=== PATIENT | male | born 1945 | race Caucasian/White ===

== ENCOUNTER 2016-07-19 23:52 | Emergency (ER) | payer MEDICARE, OTHER ==
[~2016-07-19] VITALS: Ht 188 cm; Wt 118.2 kg
[~2016-07-19 23:52] MED LIST: ALPR0.25 PO; B COTAB3 PO; FLUO20TA20 PO; LISI10TA PO; LOVA20TA PO; POTA1080 PO; PROS5TAB2 PO; PROT40TA PO; VITA5000 PO; ZOLP10TA3 PO; ZOVI800T13 PO
[2016-07-20 00:11] VITALS: BP 105/75; PULSE 70; RESP 16; TEMP 97.3; O2SAT 95
[2016-07-20 00:20] VITALS: BP 110/74; PULSE 74; RESP 18; TEMP 97.3; O2SAT 96
--- NOTE | 2016-07-20 01:08 | PD ---
HPI Chief Complaint: Fall Time Seen by Provider: 00:58 Travel History International Travel<30 days: No Contact w/Intl Traveler<30days: No Traveled to known affect area: No History of Present Illness HPI The patient is a 71-year-old male who fell backwards at about 10:00 tonight, this was a non-syncopal spell fall. His only complaint is on the lateral aspect of the patella. He does not think he hit his patella. He denies any joint line tenderness. He denies any locking or giving away. He has never had surgery to that knee. PFSH Past Medical History Atrial Fibrillation: Yes Anxiety: Yes Cancer: No Cardiovascular Problems: Yes (IRREGULAR HEART RATE -HX) Diabetes: Yes (DIET CONTROLLED) Endocrine: No Gastrointestinal Disorders: Yes (GERD; HX GI BLEED) GERD: Yes Genitourinary: Yes (BPH) Hepatitis: No Hiatal Hernia: Yes Hypertension: Yes Immune Disorder: No Insomnia: Yes Musculoskeletal: Yes (ARTHRITIS) Neurologic: No Psychiatric: Yes (ANXIETY) Reproductive: No Respiratory: Yes (SLEEP APNEA) Immunizations Current: Yes Sleep Apnea: Yes Past Surgical History Abdominal Surgery: Yes (88' UMBILICAL HERNIA REPAIR) Body Medical Devices: NONE Cholecystectomy: Yes (NOVEMBER 2012) Pacemaker: No Other Surgery: Yes Social History Alcohol Use: Yes (ONCE MONTHLY) Tobacco Use: No Substance Use: No Allergies-Medications (Allergen,Severity, Reaction): Coded Allergies: No Known Allergies (Verified , 07/20/16) Reported Meds & Prescriptions Reported Meds & Active Scripts Active Reported Zolpidem (Zolpidem Tartrate) 10 Mg Tab 10 Mg PO HS PRN Potassium Citrate ER 15 Meq Tab 10 Meq PO DAILY Pantoprazole (Pantoprazole Sodium) 40 Mg Tab 40 Mg PO DAILY Lovastatin 20 Mg Tab 20 Mg PO DAILY Lisinopril-Hctz 10-12.5 Mg Tab 1 Tab PO DAILY Fluoxetine (Fluoxetine HCl) 20 Mg Cap 20 Mg PO DAILY Finasteride 5 Mg Tab 5 Mg PO DAILY Do not crush. Vitamin D-3 (Cholecalciferol) 1,000 Unit Tab 5,000 Units PO DAILY B-Complex (Vitamins-Lipotropics) 1 Tab 1 Tab PO DAILY Alprazolam 0.25 Mg Tab 0.25 Mg PO Q8H PRN Review of Systems Except as stated in HPI: all other systems reviewed are Neg Physical Exam Narrative GENERAL: Well-nourished, well-developed patient in slight apparent distress with his right knee discomfort. His vital signs are normal. SKIN: Warm and dry. HEAD: Normocephalic. EYES: No scleral icterus. No injection or drainage. NECK: Supple, trachea midline. No JVD or lymphadenopathy. CARDIOVASCULAR: Regular rate and rhythm without murmurs, gallops, or rubs. RESPIRATORY: Breath sounds equal bilaterally. No accessory muscle use. GASTROINTESTINAL: Abdomen soft, non-tender, nondistended. MUSCULOSKELETAL: No cyanosis, or edema. Patellar crunch is normal. Collaterals , drawer, Renato all show intact ligaments. BACK: Nontender without obvious deformity. No CVA tenderness. Data Data Last Documented VS Vital Signs Date Time Temp Pulse Resp B/P Pulse Ox O2 Delivery O2 Flow Rate FiO2 07/20/16 00:20 97.3 74 18 110/74 96 Orders Knee, Complete (4vws) (07/20/16 01:04) [facility] Medical Decision Making Medical Screen Exam Complete: Yes Emergency Medical Condition: Yes Medical Record Reviewed: Yes Interpretation(s) X-rays show severe osteoarthritis but no fracture. Differential Diagnosis Fracture knee, torn meniscus, osteoarthritis, contusion knee Narrative Course The patient has osteoarthritis of his right knee. He should take over-the- counter Motrin and follow-up with his primary care physician. Diagnosis Primary Impression: Osteoarthritis of right knee Additional Instructions: As we discussed, take Motrin or Advil regularly and allowing her need to calm down. This may take several weeks. Follow-up with your primary care physician. Med/Other Pt SpecificInfo: No Change to Meds Disposition: 01 DISCHARGE HOME Condition: Stable David Hopkins MD Jul 20, 2016 01:08
[2016-07-20] MEDS ORDERED: LOVA20TA PO (01:14)
[2016-07-20] MEDS ORDERED: LISI10TA PO (01:14)
[2016-07-20] MEDS ORDERED: POTA4.25 PO (01:14)
[2016-07-20] MEDS ORDERED: VITA10003 PO (01:14)
[2016-07-20] MEDS ORDERED: B-COTAB27 PO (01:14)
[2016-07-20] MEDS ORDERED: PANT40TA3 PO (01:14)
[2016-07-20] MEDS ORDERED: ALPR0.25 PO (01:14)
[2016-07-20] MEDS ORDERED: FINA5TAB2 PO (01:14)
[2016-07-20] MEDS ORDERED: FLUO20CA4 PO (01:14)
[2016-07-20] MEDS ORDERED: ZOLP10TA3 PO (01:14)
--- NOTE | 2016-07-20 01:27 | RADHPO ---
EXAM DATE/TIME: 07/20/2016 01:08 [facility] COMPARISON: No previous studies available for comparison. INDICATIONS : Right knee pain after patient fell down stairs 4 hours ago. MEDICAL HISTORY : None. SURGICAL HISTORY : None. ENCOUNTER: Initial ACUITY: 1 day PAIN SCORE: 8/10 LOCATION: Right anterior knee FINDINGS: There is severe osteoarthritis of the knee involving the medial tibiofemoral compartment with joint s pace narrowing, mild subchondral sclerosis and marginal osteophytosis. Marginal osteophyte formation at the lateral tibial plateau is also noted. Prominent patellar osteophyte formation superiorly. No f racture or dislocation. CONCLUSION: Severe osteoarthritis. Ramses Rao MD on July 20, 2016 at 1:25 Board Certified Radiologist. This report was verified electronically.
[2016-07-20 02:11] VITALS: BP 116/74; PULSE 74; RESP 18; O2SAT 96
== END 2016-07-20 02:13 | disposition home or self-care (01) ==
LOC: PHED 23:52
DX: M17.11 Unilateral primary osteoarthritis, right knee (principal); I48.91 Unspecified atrial fibrillation; E11.9 Type 2 diabetes mellitus without complications; I10 Essential (primary) hypertension; W01.0XXA Fall on same level from slipping, tripping and stumbling without subsequent striking against object, initial encounter
CPT/HCPCS: 73564; 99283